=== PATIENT | female | born 1990 | race Caucasian/White ===

== ENCOUNTER 2021-06-22 15:44 | Emergency (ER) | payer OTHER ==
[~2021-06-22 15:44] MED LIST: IBUPROFEN600 MG PO; LODINE CAP 300300 MG PO; NORFLEX 100 MG100 MG PO; Voltaren Gel 1% TOP
[2021-06-22] MEDS ORDERED: DELSYM30 MG/5 ML PO (19:13)
[2021-06-22] MEDS ORDERED: FLONASE 0.05% N16 GM (19:13)
== END 2021-06-22 19:25 | disposition home or self-care (01) ==
LOC: ER1 15:44
DX: B34.9 Viral infection, unspecified (principal); J06.9 Acute upper respiratory infection, unspecified; I10 Essential (primary) hypertension; Z88.2 Allergy status to sulfonamides; Z88.0 Allergy status to penicillin; Z88.5 Allergy status to narcotic agent; Z20.822 Contact with and (suspected) exposure to COVID-19
CPT/HCPCS: 0240U; 99283